=== PATIENT | male | born 1940 | race Caucasian/White ===

== ENCOUNTER 2022-10-24 16:42 | Emergency (ER) | payer MEDICARE, OTHER, SELFPAY ==
[2022-10-24 16:43] VITALS: BP 131/77; PULSE 64; RESP 16; TEMP 36.7; O2SAT 94; BMI 33.0
[2022-10-24] MEDS: BACITRACIN 0.9 GM PACKET 1 PACKET TOPICAL (16:50)
[2022-10-24] MEDS: WATER FOR IRRIGATION, STERILE 1,000 ML IRRIG.SOLN 1000 ML IRR (16:50)
--- NOTE | 2022-10-24 17:05 | ED.WOUNDLAC1 ---
Documented by User: JUSTIN Munguia 10/24/22 19:08 HPI - Wound/Laceration General Chief Complaint: Wound/Laceration Stated Complaint: LOWER EXTREMITY Time Seen by Provider: 10/24/22 16:46 Source: patient Mode of arrival: ambulance History of Present Illness HPI narrative: patient is an 82-year-old male who presents to the emergency department for the evaluation of bleeding from the left anterior daigle. He states two weeks ago he scraped the area on the side of a car door. The abrasion has been slow healing over the last two weeks and today he was in the shower when the area of the abrasion softened up and began to bleed. He called EMS because he could not get the bleeding to stop. He is on Eliquis for history of coronary artery disease. He denies any pain or new injuries. He just finished a course of clindamycin in the last two days. Related Data Home Medications Medication Instructions Recorded Confirmed amiodarone 200 mg tablet 200 mg PO Q24H 10/24/22 10/24/22 apixaban 5 mg tablet (Eliquis) 5 mg PO Q24H 10/24/22 10/24/22 furosemide 40 mg tablet 40 mg PO Q24H 10/24/22 10/24/22 hydrochlorothiazide 25 mg tablet 25 mg PO Q24H 10/24/22 10/24/22 Previous Rx's Medication Instructions Recorded mupirocin 2 % topical ointment 1 applic topical BID #15 grams 10/24/22 Allergies Allergy/AdvReac Type Severity Reaction Status Date / Time No Known Drug Allergies Allergy Verified 10/24/22 16:50 Review of Systems ROS Constitutional Denies: fever or chills Cardiovascular Denies: chest pain Respiratory Denies: shortness of breath or cough Gastrointestinal Denies: nausea or vomiting Musculoskeletal Denies: back pain or neck pain Integumentary/Breast Denies: rash Neurological Denies: headache Hematologic/Lymphatic Reports: easy bruising and easy bleeding PFSH PFSH Social History Smoking status: Never smoker Exam Narrative Exam Narrative: Gen.: Awake, alert, in no distress Head: Normocephalic, atraumatic ENT: Moist mucous membranes Respiratory: No respiratory distress Extremities: 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 No active bleeding at time of evaluation. No surrounding erythema or edema noted. Psych: Normal mood and affect Neuro: No focal neuro deficit Skin: Warm, dry Constitutional Vital Signs, click to edit/add: Last Vital Signs Temp 98.0 F 10/24/22 16:43 Pulse 64 10/24/22 16:43 Resp 16 10/24/22 16:43 BP 131/77 10/24/22 16:43 Pulse Ox 94 L 10/24/22 16:43 O2 Del Method Room Air 10/24/22 16:43 Course Vital Signs Vital signs: Vital Signs Temperature 98.0 F 10/24/22 16:43 Pulse Rate 64 10/24/22 16:43 Respiratory Rate 16 10/24/22 16:43 Blood Pressure 131/77 10/24/22 16:43 Pulse Oximetry 94 L 10/24/22 16:43 Oxygen Delivery Method Room Air 10/24/22 16:43 Temperature 98.0 F 10/24/22 16:43 Pulse Rate 64 10/24/22 16:43 Respiratory Rate 16 10/24/22 16:43 Blood Pressure 131/77 10/24/22 16:43 Pulse Oximetry 94 L 10/24/22 16:43 Oxygen Delivery Method Room Air 10/24/22 16:43 MDM - Wound/Laceration MDM Narrative Medical decision making narrative: patient with no bleeding in the Emergency Room, he is neurovascularly intact pre-and post-dressing application with bacitracin, Adaptic and gauze. He was instructed to keep the dressing in place for forty-eight hours. He had no bleeding in the Emergency Room and hemoglobin is 13.7. He is prescribed Bactroban ointment as he recently finished clindamycin. at time of discharge, patient got up to go to the bathroom, he did have bleeding through his dressing. There is no active bleeding that can be sutured. Gelfoam was placed with an additional dressing and the patient had resolution of bleeding, he was able to ambulate with no additional bleeding. Return to the Emergency Room if symptoms change or worsen Medical Records Attestation: I reviewed the patient's medical records. Lab Data Attestation: I reviewed the patient's lab results. Labs: Lab Results 09/07/23 Range/Units 17:21 WBC 5.4 (4.0-11.0) 10^3/uL RBC 4.11 L (4.70-6.10) 10^6/uL Hgb 13.7 L (14.0-18.0) g/dL Hct 39.6 L (42.0-54.0) % MCV 96.4 H (80.0-94.0) fL MCH 33.3 (25.9-34.0) pg MCHC 34.6 (29.9-35.2) g/dL RDW 12.0 (11.0-15.0) % Plt Count 164 (150-450) 10^3/uL MPV 9.6 (9.5-13.5) fL Neut % (Auto) 69.0 (43.0-75.0) % Lymph % (Auto) 19.8 L (20.5-60.0) % [place] % (Auto) 9.3 (1.7-12.0) % Eos % (Auto) 0.6 L (0.9-7.0) % Baso % (Auto) 0.4 (0.2-2.0) % Neut # (Auto) 3.7 (1.4-6.5) 10^3/uL Lymph # (Auto) 1.1 L (1.2-3.8) 10^3/uL [place] # (Auto) 0.5 (0.3-0.8) 10^3/uL Eos # (Auto) 0.0 (0.0-0.7) 10^3/uL Baso # (Auto) 0.0 (0.0-0.1) 10^3/uL Abs Immat Gran (auto) 0.05 H (0.00-0.03) 10^3/uL Imm/Tot Granulo (auto) 0.9 H (0.0-0.5) % Discharge Plan Discharge Chief Complaint: Wound/Laceration Clinical Impression: Abrasion Patient Disposition: Home, Self-Care Time of Disposition Decision: 17:52 Condition: Good Prescriptions / Home Meds: New mupirocin 2 % ointment 1 applic topical BID Qty: 15 0RF No Action Eliquis 5 mg tablet 5 mg PO Q24H amiodarone 200 mg tablet 200 mg PO Q24H furosemide 40 mg tablet 40 mg PO Q24H hydrochlorothiazide 25 mg tablet 25 mg PO Q24H Instructions: Abrasion (ED), Acute Wounds (ED) Stand Alone Forms: Portal Instructions Referrals: Physician,Non-Staff, [Primary Care Provider] - 1 week Discharge Date/Time: 10/24/22 19:00 Documented by User: Sharee Tabor MD 10/24/22 19:16 HPI - Wound/Laceration General Chief Complaint: Wound/Laceration Stated Complaint: LOWER EXTREMITY Time Seen by Provider: 10/24/22 16:46 Related Data Home Medications Medication Instructions Recorded Confirmed amiodarone 200 mg tablet 200 mg PO Q24H 10/24/22 10/24/22 apixaban 5 mg tablet (Eliquis) 5 mg PO Q24H 10/24/22 10/24/22 furosemide 40 mg tablet 40 mg PO Q24H 10/24/22 10/24/22 hydrochlorothiazide 25 mg tablet 25 mg PO Q24H 10/24/22 10/24/22 Previous Rx's Medication Instructions Recorded mupirocin 2 % topical ointment 1 applic topical BID #15 grams 10/24/22 Allergies Allergy/AdvReac Type Severity Reaction Status Date / Time No Known Drug Allergies Allergy Verified 10/24/22 16:50 PFSH PFSH Social History Smoking status: Never smoker Exam Constitutional Vital Signs, click to edit/add: Last Vital Signs Temp 98.0 F 10/24/22 16:43 Pulse 64 10/24/22 16:43 Resp 16 10/24/22 16:43 BP 131/77 10/24/22 16:43 Pulse Ox 94 L 10/24/22 16:43 O2 Del Method Room Air 10/24/22 16:43 Course Vital Signs Vital signs: Vital Signs Temperature 98.0 F 10/24/22 16:43 Pulse Rate 64 10/24/22 16:43 Respiratory Rate 16 10/24/22 16:43 Blood Pressure 131/77 10/24/22 16:43 Pulse Oximetry 94 L 10/24/22 16:43 Oxygen Delivery Method Room Air 10/24/22 16:43 Temperature 98.0 F 10/24/22 16:43 Pulse Rate 64 10/24/22 16:43 Respiratory Rate 16 10/24/22 16:43 Blood Pressure 131/77 10/24/22 16:43 Pulse Oximetry 94 L 10/24/22 16:43 Oxygen Delivery Method Room Air 10/24/22 16:43 MDM - Wound/Laceration MDM Narrative Medical decision making narrative: patient with no bleeding in the Emergency Room, he is neurovascularly intact pre-and post-dressing application with bacitracin, Adaptic and gauze. He was instructed to keep the dressing in place for forty-eight hours. He had no bleeding in the Emergency Room and hemoglobin is 13.7. He is prescribed Bactroban ointment as he recently finished clindamycin. at time of discharge, patient got up to go to the bathroom, he did have bleeding through his dressing. There is no active bleeding that can be sutured. Gelfoam was placed with an additional dressing and the patient had resolution of bleeding, he was able to ambulate with no additional bleeding. Return to the Emergency Room if symptoms change or worsen Attending physician attestation I have seen and evaluated this patient. I have reviewed the mid-level provider?s documentation medical decision making and treatment plan. I agree with the mid-level provider?s assessment, and plan. All procedures were done by mid-level provider under my supervision. Lab Data Labs: Lab Results 10/24/22 Range/Units 17:21 WBC 5.4 (4.0-11.0) 10^3/uL RBC 4.11 L (4.70-6.10) 10^6/uL Hgb 13.7 L (14.0-18.0) g/dL Hct 39.6 L (42.0-54.0) % MCV 96.4 H (80.0-94.0) fL MCH 33.3 (25.9-34.0) pg MCHC 34.6 (29.9-35.2) g/dL RDW 12.0 (11.0-15.0) % Plt Count 164 (150-450) 10^3/uL MPV 9.6 (9.5-13.5) fL Neut % (Auto) 69.0 (43.0-75.0) % Lymph % (Auto) 19.8 L (20.5-60.0) % [place] % (Auto) 9.3 (1.7-12.0) % Eos % (Auto) 0.6 L (0.9-7.0) % Baso % (Auto) 0.4 (0.2-2.0) % Neut # (Auto) 3.7 (1.4-6.5) 10^3/uL Lymph # (Auto) 1.1 L (1.2-3.8) 10^3/uL [place] # (Auto) 0.5 (0.3-0.8) 10^3/uL Eos # (Auto) 0.0 (0.0-0.7) 10^3/uL Baso # (Auto) 0.0 (0.0-0.1) 10^3/uL Abs Immat Gran (auto) 0.05 H (0.00-0.03) 10^3/uL Imm/Tot Granulo (auto) 0.9 H (0.0-0.5) % Discharge Plan Discharge Chief Complaint: Wound/Laceration Clinical Impression: Abrasion Patient Disposition: Home, Self-Care Time of Disposition Decision: 17:52 Condition: Good Prescriptions / Home Meds: New mupirocin 2 % ointment 1 applic topical BID Qty: 15 0RF No Action Eliquis 5 mg tablet 5 mg PO Q24H amiodarone 200 mg tablet 200 mg PO Q24H furosemide 40 mg tablet 40 mg PO Q24H hydrochlorothiazide 25 mg tablet 25 mg PO Q24H Instructions: Abrasion (ED), Acute Wounds (ED) Stand Alone Forms: Portal Instructions Referrals: Physician,Non-Staff, MD [Primary Care Provider] - 1 week Discharge Date/Time: 10/24/22 19:00
[2022-10-24 17:56] LABS: Basophils Percent Auto 0.4 % (0.2-2.0); Eosinophils Percent Auto 0.6 % (0.9-7.0); Hematocrit 39.6 % (42.0-54.0); Hemoglobin 13.7 g/dL (14.0-18.0); Immature Granulocytes Abs Auto 0.05 10^3/uL (0.00-0.03); Immature Granulocytes Pct Auto 0.9 % (0.0-0.5); Lymphocytes Absolute Auto 1.1 10^3/uL (1.2-3.8); Lymphocytes Percent Auto 19.8 % (20.5-60.0); Mean Corpuscular HGB Conc 34.6 g/dL (29.9-35.2); Mean Corpuscular Hemoglobin 33.3 pg (25.9-34.0); Mean Corpuscular Volume 96.4 fL (80.0-94.0); Mean Platelet Volume 9.6 fL (9.5-13.5); Monocytes Absolute Auto 0.5 10^3/uL (0.3-0.8); Monocytes Percent Auto 9.3 % (1.7-12.0); Neutrophils Absolute Auto 3.7 10^3/uL (1.4-6.5); Platelet Count 164 10^3/uL (150-450); Red Blood Count 4.11 10^6/uL (4.70-6.10); White Blood Count 5.4 10^3/uL (4.0-11.0)
[2022-10-24] MEDS: SURGIFOAM GEL SPONGE SIZE 100 1 EACH TOPICAL (18:26)
== END 2022-10-24 19:00 | disposition home or self-care (01) ==
PROVIDERS: Physician Assistant; Emergency Provider Emergency Medicine
DX: S80.812A Abrasion, left lower leg, initial encounter (principal); I25.10 Atherosclerotic heart disease of native coronary artery without angina pectoris; Z79.01 Long term (current) use of anticoagulants; Z79.899 Other long term (current) drug therapy; Z89.511 Acquired absence of right leg below knee
CPT/HCPCS: 36415; 85025; 99283

== ENCOUNTER 2023-05-21 06:59 | Outpatient (RCR) | payer MEDICARE, OTHER, SELFPAY ==
--- NOTE | 2023-03-19 14:19 | CR1_ITS ---
[facility] Test Date: 2023-03-19 Pat Name: ALEXANDRU DURÁN Department: Room: - Gender: Male Counseling Department Chair: : 1940 Requested By: ELISHA ENCARNACION Order Number: [id number] Ibis MD: ELISHA ENCARNACION Interpretive Statements Session Date: Electronically Signed On 03-20-2023 6:53:17 EST by ELISHA ENCARNACION
--- NOTE | 2023-04-14 13:37 | CR1_ITS ---
[facility] Test Date: 2023-04-14 Pat Name: ALEXANDRU DURÁN Department: Room: - Gender: Male Process Development Chemist: : 1940 Requested By: ELISHA ENCARNACION Order Number: [id number] Ibis MD: ELISHA ENCARNACION Interpretive Statements Session Date: Electronically Signed On 04-14-2023 23:37:55 EST by ELISHA ENCARNACION
--- NOTE | 2023-05-12 07:46 | CR1_ITS ---
[facility] Test Date: 2023-05-12 Pat Name: ALEXANDRU DURÁN Department: Room: - Gender: Male Desktop Engineer: : 1940 Requested By: ELISHA ENCARNACION Order Number: [id number] Ibis MD: ELISHA ENCARNACION Interpretive Statements Session Date: Electronically Signed On 05-12-2023 22:50:42 EDT by ELISHA ENCARNACION
--- NOTE | 2023-05-21 09:13 | CR1_ITS ---
[facility] Test Date: 2023-05-21 Pat Name: ALEXANDRU DURÁN Department: Room: - Gender: Male Rn Clinical Resource: : 1940 Requested By: ELISHA ENCARNACION Order Number: [id number] Ibis MD: ELISHA ENCARNACION Interpretive Statements Session Date: Electronically Signed On 05-22-2023 7:12:43 EDT by ELISHA ENCARNACION
== END 2023-05-21 09:16 | disposition home or self-care (01) ==
LOC: CR 06:59
PROVIDERS: Visit Provider Family Medicine
DX: Z98.61 Coronary angioplasty status (principal)
CPT/HCPCS: 93798

== ENCOUNTER 2023-08-02 23:59 | Emergency (ER) | payer MEDICARE, OTHER, SELFPAY ==
[2023-08-03 00:09] VITALS: BP 132/77; PULSE 70; TEMP 36.9; O2SAT 95; BMI 33.9
--- NOTE | 2023-08-03 00:21 | ED_ITS ---
HPI - Abdominal Pain General Chief Complaint: Abdominal Pain Stated Complaint: BOWEL ISSUES Time Seen by Provider: 08/03/23 00:12 Source: patient Mode of arrival: Wheelchair Limitations: no limitations History of Present Illness HPI narrative: s/p left knee TKA this past friday at [facility]. States he has not had a BM since but feels like he needs to go. States tonight he passed some liquid. No nausea or vomiting or abdominal pain. Feels his knee is doing ok. patient prescribed oxycodone for pain Related Data Home Medications ?Medication ?Instructions ?Recorded ?Confirmed amiodarone 200 mg tablet 200 mg PO Q24H 10/24/22 08/03/23 apixaban 5 mg tablet (Eliquis) 5 mg PO Q24H 10/24/22 08/03/23 furosemide 40 mg tablet 40 mg PO Q24H 10/24/22 08/03/23 hydrochlorothiazide 25 mg tablet 25 mg PO Q24H 10/24/22 08/03/23 atorvastatin 80 mg tablet 80 mg PO DAILY 08/03/23 08/03/23 carvedilol 3.125 mg tablet 3.125 mg PO BID 08/03/23 08/03/23 clopidogrel 75 mg tablet 75 mg PO DAILY 08/03/23 08/03/23 docusate sodium 100 mg capsule 100 mg PO BID PRN constipation 08/03/23 08/03/23 latanoprost 0.005 % eye drops 1 drp ophthalmic (eye) .hs 08/03/23 08/03/23 nitroglycerin 0.4 mg sublingual 0.4 mg sublingual Q5M PRN chest 08/03/23 08/03/23 tablet pain oxycodone-acetaminophen 5 mg-325 1 tab PO Q4H PRN pain 08/03/23 08/03/23 mg tablet Allergies Allergy/AdvReac Type Severity Reaction Status Date / Time No Known Drug Allergies Allergy Verified 08/03/23 00:13 Review of Systems ROS Status of ROS 10 or more systems reviewed and unremark able except as noted in history and below [facility] Social History Smoking status: Never smoker Exam Constitutional Vital Signs, click to edit/add: Last Vital Signs Temp 98.5 F 08/03/23 00:09 Pulse 71 08/03/23 01:40 Resp 18 08/03/23 01:40 BP 121/69 08/03/23 01:40 Pulse Ox 94 L 08/03/23 01:40 O2 Del Method Room Air 08/03/23 00:09 Common normals: no apparent distress, oriented x3, no limitations, healthy appearing, alert and well nourished [facility] Common normals: normocephalic and head/scalp atraumatic Eye Common normals: PERRL and EOMs intact bilaterally Respiratory Common normals: normal respiratory effort, no retractions, no use of accessory muscles and clear to auscultation bilaterally Cardio Common normals: regular rate, regular rhythm, S1 normal heart sound and S2 normal heart sound GI Common normals: Normal to inspection, nondistended, normoactive bowel sounds present, soft to palpation and non-tender Extremity Other: right BKA left lower ext with recent left TKA. associated post op swelling . incision looks good Neuro Common normals: oriented x3, CN's II-XII intact bilaterally and moves all extremities Psych Appearance: grossly normal Course Vital Signs Vital signs: Vital Signs Temperature 98.5 F 08/03/23 00:09 Pulse Rate 70 08/03/23 00:09 Respiratory Rate 18 08/03/23 00:09 Blood Pressure 132/77 08/03/23 00:09 Pulse Oximetry 95 08/03/23 00:09 Oxygen Delivery Method Room Air 08/03/23 00:09 Temperature 98.5 F 08/03/23 00:09 Pulse Rate 71 08/03/23 01:40 Respiratory Rate 18 08/03/23 01:40 Blood Pressure 121/69 08/03/23 01:40 Pulse Oximetry 94 L 08/03/23 01:40 Oxygen Delivery Method Room Air 08/03/23 00:09 MDM - Abdominal Pain MDM Narrative Medical decision making narrative: patient presents with constipation. Require enema for successful results and discharged home Lab Data Labs: Lab Results 08/03/23 Range/Units 00:21 WBC 10.3 (4.0-11.0) 10^3/uL RBC 3.75 L (4.70-6.10) 10^6/uL Hgb 12.0 L (14.0-18.0) g/dL Hct 35.7 L (42.0-54.0) % MCV 95.2 H (80.0-94.0) fL MCH 32.0 (25.9-34.0) pg MCHC 33.6 (29.9-35.2) g/dL RDW 12.1 (11.0-15.0) % Plt Count 185 (150-450) 10^3/uL MPV 9.4 L (9.5-13.5) fL Neut % (Auto) 77.8 H (43.0-75.0) % Lymph % (Auto) 11.8 L (20.5-60.0) % [place] % (Auto) 8.0 (1.7-12.0) % Eos % (Auto) 1.7 (0.9-7.0) % Baso % (Auto) 0.3 (0.2-2.0) % Neut # (Auto) 8.0 H (1.4-6.5) 10^3/uL Lymph # (Auto) 1.2 (1.2-3.8) 10^3/uL [place] # (Auto) 0.8 (0.3-0.8) 10^3/uL Eos # (Auto) 0.2 (0.0-0.7) 10^3/uL Baso # (Auto) 0.0 (0.0-0.1) 10^3/uL Abs Immat Gran (auto) 0.04 H (0.00-0.03) 10^3/uL Imm/Tot Granulo (auto) 0.4 (0.0-0.5) % Sodium 134 L (136-145) mmol/L Potassium 3.8 (3.5-5.1) mmol/L Chloride 99 (98-107) mmol/L Carbon Dioxide 27.6 (21.0-32.0) mmol/L Anion Gap 11.2 BUN 17.0 (7.0-18.0) mg/dL Creatinine 0.90 (0.70-1.30) mg/dL Est GFR ( Amer) >60 (>=60) Est GFR (Non-Af Amer) >60 (>=60) BUN/Creatinine Ratio 18.9 Glucose 132 H (74-106) mg/dL Calcium 9.2 (8.5-10.1) mg/dL Discharge Plan Discharge Stand Alone Forms: Portal Instructions Chief Complaint: Abdominal Pain Clinical Impression: Constipation Patient Disposition: Home, Self-Care Prescriptions / Home Meds: No Action Eliquis 5 mg tablet 5 mg PO Q24H amiodarone 200 mg tablet 200 mg PO Q24H furosemide 40 mg tablet 40 mg PO Q24H hydrochlorothiazide 25 mg tablet 25 mg PO Q24H carvedilol 3.125 mg tablet 3.125 mg PO BID clopidogrel 75 mg tablet 75 mg PO DAILY docusate sodium 100 mg capsule 100 mg PO BID PRN (Reason: constipation) nitroglycerin 0.4 mg tablet, sublingual 0.4 mg sublingual Q5M PRN (Reason: chest pain) oxycodone-acetaminophen 5-325 mg tablet 1 tab PO Q4H PRN (Reason: pain) latanoprost 0.005 % drops 1 drp OPHTHALMIC (EYE) .hs atorvastatin 80 mg tablet 80 mg PO DAILY Print Language: Persian Instructions: Constipation (ED) Referrals: Physician,Non-Staff, MD [Primary Care Provider] - 1 week
--- NOTE | 2023-08-03 00:24 | XR_ITS ---
[facility] [place] [id number] Patient Name: ALEXANDRU DURÁN MRN: [id number] date: 1940 Sex: M Assigned Patient Location: ER Current Patient Location: ER Accession/Order Number: [id number] Exam Date: 08/03/2023 00:40 Report Date: 08/03/2023 01:36 At the request of: DEVI VERA Procedure: XR abdomen min 2V XR abdomen min 2V, 08/02/2023 11:40 PM CDT: History: constipation. Comparison: None. Technique: 2 view abdomen Findings: The bowel gas pattern is nonobstructive. There is no evidence of free intra-abdominal air. There is no evidence of organomegaly or abnormal intra-abdominal calcifications. The gallbladder is surgically absent. There is posterior fusion hardware in the lumbar spine. XR/XR abdomen min 2V Impression: Nonobstructive bowel gas pattern without evidence of free air. Electronically authenticated by: ANA NICHOLAS Date: 08/03/2023 01:36
[2023-08-03 00:33] LABS: Basophils Percent Auto 0.3 % (0.2-2.0); Eosinophils Absolute Auto 0.2 10^3/uL (0.0-0.7); Eosinophils Percent Auto 1.7 % (0.9-7.0); Hematocrit 35.7 % (42.0-54.0); Immature Granulocytes Abs Auto 0.04 10^3/uL (0.00-0.03); Immature Granulocytes Pct Auto 0.4 % (0.0-0.5); Lymphocytes Absolute Auto 1.2 10^3/uL (1.2-3.8); Lymphocytes Percent Auto 11.8 % (20.5-60.0); Mean Corpuscular HGB Conc 33.6 g/dL (29.9-35.2); Mean Corpuscular Volume 95.2 fL (80.0-94.0); Mean Platelet Volume 9.4 fL (9.5-13.5); Monocytes Absolute Auto 0.8 10^3/uL (0.3-0.8); Neutrophils Percent Auto 77.8 % (43.0-75.0); Platelet Count 185 10^3/uL (150-450); Red Blood Count 3.75 10^6/uL (4.70-6.10); Red Cell Distribution Width 12.1 % (11.0-15.0); White Blood Count 10.3 10^3/uL (4.0-11.0)
[2023-08-03 00:41] LABS: Anion Gap 11.2; BUN Creatinine Ratio 18.9; Calcium 9.2 mg/dL (8.5-10.1); Carbon Dioxide 27.6 mmol/L (21.0-32.0); Chloride 99 mmol/L (98-107); Estimated GFR (African America >60 (>=60); Estimated GFR (Non-African Ame >60 (>=60); Glucose 132 mg/dL (74-106); Potassium 3.8 mmol/L (3.5-5.1); Sodium 134 mmol/L (136-145)
[2023-08-03] MEDS: MORPHINE SULFATE 4 MG/ML VIAL IV (01:32)
[2023-08-03 01:40] VITALS: BP 121/69; PULSE 71; O2SAT 94
[2023-08-03] MEDS: ONDANSETRON 4 MG RAPDIS TABLET SL (03:39)
== END 2023-08-03 04:03 | disposition home or self-care (01) ==
PROVIDERS: Emergency Provider Internal Medicine
DX: K59.00 Constipation, unspecified (principal); Z96.652 Presence of left artificial knee joint
CPT/HCPCS: 36415; 74019; 80048; 85025; 96374; 99284; J2270; Q0162

== ENCOUNTER 2024-06-15 08:51 | Outpatient (RCR) | payer MEDICARE, OTHER, SELFPAY | END 2024-07-10 07:35 | disposition home or self-care (01) | LOC: PT 08:51 | PROVIDERS: PCP Family Medicine; Visit Provider Student in an Organized Health Care Education/Training Program | DX: M54.2 Cervicalgia (principal); R51.9 Headache, unspecified | CPT/HCPCS: 20561; 97012; 97110; 97140; 97161 ==